=== PATIENT | male | born 1965 | race Caucasian/White ===

== ENCOUNTER → 2021-05-19 11:13 | Outpatient (CLI) | payer OTHER, SELFPAY ==
--- NOTE | 2021-05-19 | DI.RAD.S_ITS ---
PROCEDURE: XR THORACIC SPINE 2V INDICATIONS: CERVICAL, THORACIC, AND LUMBAR SPINE PAIN TECHNIQUE: Three views of the thoracic spine were acquired. COMPARISON: None. FINDINGS: Bones: No fractures or dislocations. No suspicious bony lesions. 12 pairs of ribs are noted, and appear intact where visualized. Soft tissues: No paravertebral stripe thickening. IMPRESSION: Normal thoracic spine. Dictated by: Charlette Garcia M.D. on 05/19/2021 at 12:45 Approved by: Charlette Garcia M.D. on 05/19/2021 at 12:53
--- NOTE | 2021-05-19 | DI.RAD.S_ITS ---
PROCEDURE: XR CERVICAL SPINE 2V OR 3V INDICATIONS: CERVICAL, THORACIC, AND LUMBAR SPINE PAIN TECHNIQUE: 3 view(s) of the cervical spine were acquired. COMPARISON: None. FINDINGS: Straightening of the usual cervical lordosis. Otherwise normal alignment. Vertebral body heights maintained. Disc height loss at C4-C5 and C5-C6 and C6-C7 with mild degenerative endplate change and uncovertebral spurring. Facet hypertrophy is also present at these levels. IMPRESSION: Degenerative changes from C4-C5 through C6-C7, overall moderate. Dictated by: Mannie Lilly M.D. on 05/19/2021 at 12:37 Approved by: Mannie Lilly M.D. on 05/19/2021 at 12:49
--- NOTE | 2021-05-19 | DI.RAD.S_ITS ---
PROCEDURE: XR LUMBAR SPINE 2-3V INDICATIONS: CERVICAL, THORACIC, AND LUMBAR SPINE PAIN TECHNIQUE: 3 views of the lumbar spine were acquired. COMPARISON: None. FINDINGS: Bones: 5 [id number] vertebrae are present. There is normal bony alignment. No vertebral body compression fractures. No suspicious bony lesions. Prominent left L5-S1 facet arthropathy. There is also facet arthropathy at L4-L5. Soft tissues: Overlying bowel gas pattern is normal. No suspicious soft tissue calcifications. IMPRESSION: Lower lumbar facet arthropathy. No evidence acute bony abnormality of the lumbar spine. If clinical suspicion and/or symptoms persist, further assessment with repeat plain films, or advanced imaging (e.g., CT, MRI, or bone scan) may be helpful for further assessment. Dictated by: Abdifatah Garsia M.D. on 05/19/2021 at 15:27 Approved by: Abdifatah Garsia M.D. on 05/19/2021 at 15:28
== END ==
PROVIDERS: PCP Family Medicine; Referring Provider Chiropractor; Visit Provider Chiropractor
DX: M99.01 Segmental and somatic dysfunction of cervical region (principal); M99.02 Segmental and somatic dysfunction of thoracic region; M99.03 Segmental and somatic dysfunction of lumbar region; M99.04 Segmental and somatic dysfunction of sacral region; M99.05 Segmental and somatic dysfunction of pelvic region; M54.2 Cervicalgia; M54.6 Pain in thoracic spine; M54.5 Low back pain; M47.812 Spondylosis without myelopathy or radiculopathy, cervical region; M47.816 Spondylosis without myelopathy or radiculopathy, lumbar region; M47.817 Spondylosis without myelopathy or radiculopathy, lumbosacral region
CPT/HCPCS: 72040; 72070; 72100

== ENCOUNTER → 2021-05-23 11:57 | Outpatient (CLI) | payer OTHER, SELFPAY ==
--- NOTE | 2021-05-23 12:00 | DI.RAD.S_ITS ---
PROCEDURE: XR CERVICAL SPINE 2V OR 3V INDICATIONS: NECK PAIN TECHNIQUE: 2 view(s) of the cervical spine were acquired. COMPARISON: [facility], , XR CERVICAL SPINE 2V OR 3V, 05/19/2021, 11:15. FINDINGS: Bilateral oblique views of the cervical spine demonstrate mild multilevel mid and lower cervical spine bilateral neural foraminal narrowing. IMPRESSION: Mild multilevel bilateral neural foraminal narrowing. Dictated by: Luis Fernando Sotelo Norman Interpreted: Jani Buck MD on 05/23/2021 at 12:47 Transcribed by: NICOLE on 05/23/2021 at 12:48 Approved by: Jani Buck M.D. on 05/26/2021 at 10:35
== END ==
PROVIDERS: PCP Family Medicine; Referring Provider Chiropractor; Visit Provider Chiropractor
DX: M54.2 Cervicalgia (principal)
CPT/HCPCS: 72040

== ENCOUNTER → 2021-05-30 08:39 | Outpatient (CLI) | payer OTHER, SELFPAY ==
[2021-05-30 09:04] LABS: COVID19 -Nasal RAPID Negative (Negative)
== END ==
PROVIDERS: PCP Family Medicine; Visit Provider Nurse Practitioner
DX: Z20.822 Contact with and (suspected) exposure to COVID-19 (principal); R05 Cough; R51.9 Headache, unspecified
CPT/HCPCS: 87635

== ENCOUNTER 2024-04-30 10:14 | Emergency (ER) | payer BC, SELFPAY ==
[2024-04-30 10:37] VITALS: BP 132/87; PULSE 59; RESP 16; TEMP 36.6; O2SAT 97; BMI 27.0
--- NOTE | 2024-04-30 11:26 | ED.BACK ---
HPI - Back Pain/Injury <Andreas Akins PA-C - Last Filed: 04/30/24 11:36> General Chief Complaint: Back Pain/Injury Stated Complaint: back pain Time Seen by Provider: 04/30/24 11:26 History of Present Illness HPI Narrative: This is a 59-year-old male presents to the emergency department due to acute onset lower back pain while he was bending over drying himself after shower. [place] a sharp pain in his lower back to his lumbar paraspinals while bending over. He was not had any recent accidents or injuries. Denies any saddle paresthesias, urinary or bowel incontinence, weakness in the lower extremities, or any other concerning signs or symptoms. No pertinent medical history. No dysuria, hematuria, urinary frequency. Related Data Home Medications Medication Instructions Recorded Confirmed fluticasone propionate 45 2 puff inhalation DAILY 05/30/21 07/01/22 mcg-salmeterol 21 mcg/actuation HFA inhaler (Advair HFA) omeprazole 20 mg capsule,delayed 20 mg PO DAILY 05/30/21 07/01/22 release Previous Rx's Medication Instructions Recorded cyclobenzaprine 10 mg tablet 10 mg PO TID PRN muscle spasm #30 04/30/24 tabs Allergies Allergy/AdvReac Type Severity Reaction Status Date / Time No Known Drug Allergies Allergy Verified 07/01/22 09:23 Review of Systems <CONSTANTINO Pimentel Last Filed: 04/30/24 11:36> Review of Systems Narrative: GENERAL: Denies chills, fatigue, malaise, fever, sweats. HEENT: Denies sinus pain, ear pain, sore throat, difficulty swallowing, dizziness. RESPIRATORY: Denies dyspnea, cough, wheezing, hemoptysis, sputum. CARDIOVASCULAR: Denies chest pain, palpitations, orthopnea, edema, GASTROINTESTINAL: Denies nausea, vomiting, abdominal pain, diarrhea, constipation, melena. : Denies dysuria, frequency, incontinence, hematuria, urinary retention. MUSCULOSKELETAL: Reports lower back pain SKIN: Denies rash, skin lesions, or other NEUROLOGIC: Denies weakness, headache, numbness, change in speech, confusion, seizures, incoordination. PSYCHIATRIC: No concerning psychosocial issues. 12 point review of systems is negative except for those stated above Patient History <Andreas Akins PA-C - Last Filed: 04/30/24 11:36> Medical History (Updated 04/30/24 @ 11:35 by Andreas Akins PA-C) Obstructive sleep apnea of adult Social History Smoking Status: Never smoker Smoking Status: Never smoker Exam <Andreas Akins PA-C - Last Filed: 04/30/24 11:36> Narrative Exam Narrative: GENERAL: Well-developed patient, in mild distress. HEAD: Atraumatic. Normocephalic. EYES: Pupils equal round and reactive. Extraocular motions intact. No scleral icterus. No injection or drainage. ENT: Nose without bleeding, purulent drainage. Throat without erythema, tonsillar hypertrophy or exudate. Airway patent. NECK: Trachea midline. Non tender EXTREMITIES: No edema or joint tenderness. NEURO: AOx3. SKIN: No rash or erythema of visible areas Back: Tenderness to palpation to the lumbar paraspinals. No midline tenderness. Initial Vital Signs Initial Vital Signs: Vital Signs Temperature 97.8 F 04/30/24 10:37 Pulse Rate 59 L 04/30/24 10:37 Respiratory Rate 16 04/30/24 10:37 Blood Pressure 132/87 04/30/24 10:37 Pulse Oximetry 97 04/30/24 10:37 Oxygen Delivery Method Room Air 04/30/24 10:37 <Elana Drake MD - Last Filed: 04/30/24 18:33> Initial Vital Signs Initial Vital Signs: Vital Signs Temperature 97.8 F 04/30/24 10:37 Pulse Rate 59 L 04/30/24 10:37 Respiratory Rate 16 04/30/24 10:37 Blood Pressure 132/87 04/30/24 10:37 Pulse Oximetry 97 04/30/24 10:37 Oxygen Delivery Method Room Air 04/30/24 10:37 Course <Andreas Akins PA-C - Last Filed: 04/30/24 11:36> Orders Ordered: Discontinued Medications Ketorolac Tromethamine (Ketorolac 30 Mg/Ml Vial) 15 mg IM NOW ONE Stop: 04/30/24 11:32 Last Admin: 04/30/24 11:36 Dose: 15 mg Documented By: Vital Signs Vital signs: Vital Signs - 8 hr 04/30/24 10:37 04/30/24 11:45 Temperature 97.8 F Pulse Rate 59 L 57 L Respiratory Rate 16 16 Blood Pressure 132/87 121/79 Pulse Oximetry 97 97 Oxygen Delivery Method Room Air Room Air <Elana Drake MD - Last Filed: 04/30/24 18:33> Orders Ordered: Discontinued Medications Ketorolac Tromethamine (Ketorolac 30 Mg/Ml Vial) 15 mg IM NOW ONE Stop: 04/30/24 11:32 Last Admin: 04/30/24 11:36 Dose: 15 mg Documented By: Vital Signs Vital signs: Vital Signs - 8 hr 04/30/24 10:37 04/30/24 11:45 Temperature 97.8 F Pulse Rate 59 L 57 L Respiratory Rate 16 16 Blood Pressure 132/87 121/79 Pulse Oximetry 97 97 Oxygen Delivery Method Room Air Room Air MDM - Back Pain/Injury <Andreas Akins PA-C - Last Filed: 04/30/24 11:36> MDM Narrative Medical decision making narrative: ED course: This is a 59-year-old male presenting to the emergency department due to suspected lumbosacral strain. Not report any injuries concerning for any kind of vertebral fracture. He denies any urinary bowel incontinence, saddle paresthesias, fevers, or any other concerning signs or symptoms. We will treat with IM Toradol, muscle relaxants, and supportive care. CC: Lower back pain Complicating co-morbidities: None Data collected from: Previous notes Medical records reviewed: Patient was not been to this emergency department in the past. Per primary care prior note from 3 years ago no pertinent medical history. History of sleep apnea. Differential considered, but not limited to: Lumbosacral strain, vertebral fracture, spinal cord injury, spinal abscess Exam documented above, pertinent findings include: Tenderness to palpation to the lumbar paraspinals, no midline tenderness Lab Test results independently reviewed as above. Pertinent findings: None obtained Imaging studies independently reviewed: None obtained Scores Used: None MIPS Elements: None Consultations: None Treatments: 15 mg IM Toradol Re-evaluations: None Discussion: Discussed plan with the patient was comfortable with the plan Diagnosis: Lumbosacral strain Disposition: see below, along with detailed discharge instructions that have been reviewed with patient as well as indications for ED re-evaluation and additional outpatient follow up Discharge Plan Departure Patient Disposition: Home Clinical Impression: Lumbosacral strain Instructions: DI for Back Strain or Sprain Activity Restrictions/Additional Instructions: Thank you for coming to the [facility] Emergency Department today. As we discussed suspect this is a strain of your lower back muscles. The Toradol today should help with the pain. Please take the muscle relaxants as prescribed. Please be careful as they may make it feel a bit ?woozy? surgery not use them before driving or operating any kind of machinery. You may use Tylenol and ibuprofen as well as needed for the pain. I sent the medication to [facility] in [place]. Please return to the emergency department if you develop any numbness between her legs, urinary or bowel incontinence, fevers, or any other concerning signs or symptoms. I hope you feel better soon. Please follow up with your primary care provider within a week if your symptoms continue. If you do not have a primary care provider please contact the [facility] Resource line at [phone]. They will ask some questions about your medical history and help you get set up with a provider in the community. Prescriptions: New cyclobenzaprine 10 mg tablet 10 mg PO TID PRN (Reason: muscle spasm) Qty: 30 0RF No Action omeprazole 20 mg capsule,delayed release(DR/EC) 20 mg PO DAILY Advair HFA 45-21 mcg/actuation HFA aerosol inhaler 2 puff inhalation DAILY Referrals: Lee Robert MD [Primary Care Provider] - Stand Alone Forms: Patient Portal/API ED Sign-out <Elana Drake MD - Last Filed: 04/30/24 18:33> Cosign ED Attending Huber Attestation: I was immediately available in the department for consultation throughout this patient's visit. Elana Drake MD
[2024-04-30] MEDS: KETOROLAC 30 MG/ML VIAL 15 MG IM (11:36)
[2024-04-30 11:45] VITALS: BP 121/79; PULSE 57; RESP 16; O2SAT 97
== END 2024-04-30 11:46 | disposition home or self-care (01) ==
PROVIDERS: Emergency Provider Physician Assistant Medical; PCP Family Medicine
DX: S39.012A Strain of muscle, fascia and tendon of lower back, initial encounter (principal); X50.1XXA Overexertion from prolonged static or awkward postures, initial encounter
CPT/HCPCS: 96372; 99283; J1885

== ENCOUNTER → 2024-05-16 09:19 | Outpatient (CLI) | payer BC, SELFPAY ==
--- NOTE | 2024-05-16 | DI.MRI.S_ITS ---
PROCEDURE: MR LUMBAR SPINE WO CON INDICATIONS: Spinal stenosis, lumbar region with neurogenic claudication TECHNIQUE: Noncontrast sagittal T1 spin echo and T2 fast echo, sagittal STIR, and T2 fast spin echo through the lumbar spine. In cases with scoliosis, additional coronal T2 fast spin echo may be performed. COMPARISON: [facility], CR, XR LUMBAR SPINE 2-3V, 05/19/2021, 11:15. [facility], CR, XR LUMBAR SPINE 2 OR 3 VIEWS, 05/03/2024, 10:40. FINDINGS: Image quality: Excellent. Alignment and Curvature: There is normal bony alignment. Bone Marrow: Marrow is of normal overall signal. No acute vertebral body compression fractures. Spinal Cord: Conus medullaris terminates at the T12 level. Visualized cord demonstrates normal signal and size. Paraspinous Soft Tissues: No paravertebral masses. Right-sided perineural cyst is seen and measures 3.3 x 1.5 cm in size at S2-3 level. T12-L1: Normal appearance. L1-L2: Normal appearance. L2-L3: Loss of disc signal and disc height. Broad-based disc bulge and bilateral facet arthrosis is seen with mild central canal stenosis and moderate right worse than left bilateral neural foraminal narrowing. L3-L4: Loss of disc signal. Broad-based disc bulge and bilateral facet arthrosis with hypertrophy of ligamentum flavum causing [id number] central canal stenosis, moderate right-sided neural foraminal narrowing and mild left-sided neural foraminal narrowing. Bulging disc is likely contacting right L3 nerve root. L4-L5: Loss of disc signal and disc height. Broad-based disc bulge and bilateral facet arthrosis with hypertrophy of ligamentum flavum causing mild central canal stenosis, moderate left-sided neural foraminal narrowing and [id number] right-sided neural foraminal narrowing. There is likely compression of bilateral L4 nerve roots. L5-S1: Loss of disc signal. Diffuse disc bulge and bilateral facet arthrosis with mild central canal stenosis and [id number] bilateral neural foraminal narrowing slightly worse on the right side. There is likely compression of bilateral L5 nerve roots. IMPRESSION: 1. Degenerative disc bulge and bilateral facet arthrosis at L2-3 through L5-S1 levels causing various degrees of central canal stenosis and bilateral neural foraminal narrowing as described above. 2. No marrow edema. No acute vertebral body compression fracture. 3. Right perineural cyst at S2-3 level as above. Dictated by: Tan Perez M.D. on 05/16/2024 at 13:06 Approved by: Tan Perez M.D. on 05/16/2024 at 13:14
== END ==
LOC: MRI 09:21
PROVIDERS: PCP Family Medicine; Referring Provider Physician Assistant Medical; Visit Provider Physician Assistant Medical
DX: M48.062 Spinal stenosis, lumbar region with neurogenic claudication (principal); M48.07 Spinal stenosis, lumbosacral region; M51.36 Other intervertebral disc degeneration, lumbar region; M51.37 Other intervertebral disc degeneration, lumbosacral region; M47.816 Spondylosis without myelopathy or radiculopathy, lumbar region; M47.817 Spondylosis without myelopathy or radiculopathy, lumbosacral region; G96.191 Perineural cyst
CPT/HCPCS: 72148